=== PATIENT | female | born 1985 | race Caucasian/White ===

== ENCOUNTER 2016-11-10 15:08 | Emergency (ER) | payer OTHER ==
[2016-11-10] MEDS ORDERED: DIPH,PERTUSS(ACELL),TET VAC/PF 0.5 ML DISP.SYRIN IM ONE (15:19)
[2016-11-10] MEDS ORDERED: Lidocaine 1% 5ml(IM or SUTURE)(PAIN CLINIC) IJ ONE (15:39)
--- NOTE | 2016-11-10 16:03 | ED Physician Documentation ---
General Adult - HISTORIAN Historian: patient - HPI Stated Complaint: R index finger laceration Chief Complaint: General Adult Onset: minutes Timing: still present Severity: mild Further Comments: yes (Pt is a 30 yo female with a R index finger laceration.) - ROS CONST: no problems EYES/ENT: none CVS/RESP: none GI/: none MS/SKIN/LYMPH: other (laceration R index finger) - PAST HX Past History: hypertension Allergies/Adverse Reactions: Allergies Allergy/AdvReac Type Severity Reaction Status Date / Time Sulfa (Sulfonamide Allergy Severe Blister Verified 11/10/16 15:23 Antibiotics) cephalexin Allergy Verified 11/10/16 15:23 Penicillins Allergy Verified 11/10/16 15:24 Home Medications: Ambulatory Orders Medication Instructions Recorded Citalopram Hydrobromide 2 11/10/16 [Citalopram HBr] Lisinopril [Prinivil] 20 mg PO QD 11/10/16 Methylprednisolone [Medrol] 4 mg PO 11/10/16 - SOCIAL HX Smoking History: non-smoker - FAMILY HX Family History: No - REVIEWED ASSESSMENTS Nursing Assessment Reviewed: Yes Vitals Reviewed: Yes Procedures Wound Location: upper extremity (R index finger) Wound Length: 2 cm Wound's Depth, Shape: superficial Wound Explored: clean Irrigated w/ Saline (ccs): 10 Betadine Prep?: No (Shur-cleans prep) Anesthesia: 1% Lidocaine Volume of Anesthetic: 4 cc Wound Debrided: minimal Wound Repaired With: sutures Suture Size/Type: 4:0, nylon Number of Sutures: 3 Layer Closure?: No Sterile Dressing Applied?: Yes Progress - Progress Progress: Tdap 0.5 ml IM d/c instructions: Apply topical antibiotic such as Neosporin, Bacitracin,or Triple Antibiotic to sutured area twice daily for 5 days. Follow up with primary provider for suture removal in 5 to 7 days. ED Results Lab/Radiology - Orders Orders: ED Orders Category Date Time Status Diph,Pertuss(Acell),Tet Vac/Pf [Adacel] Med 11/10/16 15:19 Discontinued 0.5 ml IM .ONCE ONE Lidocaine 1% 5ml(IM or SUTURE) [Xylocaine] Med 11/10/16 15:39 Discontinued 50 mg IJ NOW ONE General Adult Physical Exam - PHYSICAL EXAM GENERAL APPEARANCE: no distress NECK: normal inspection, supple RESPIRATORY: no resp distress CVS: reg rate & rhythm BACK: normal inspection SKIN: other (2 cm superficial laceration R index finger) EXTREMITIES: other (2 cm superficial laceration R index finger) NEURO: oriented X3, motor nml, sensation nml Discharge Clincal Impression: R index finger laceration Referrals: Primary Doctor,No [Primary Care Provider] - Home Medications: Ambulatory Orders Citalopram Hydrobromide [Citalopram HBr] 2 11/10/16 Lisinopril [Prinivil] 20 mg PO QD 11/10/16 Methylprednisolone [Medrol] 4 mg PO 11/10/16 Condition: Good Disposition: 01 HOME, SELF-CARE Decision to Admit: NO Decision Time: 16:03
[2016-11-10 16:42] VITALS: BP 126/94
== END 2016-11-10 16:12 | disposition home or self-care (01) ==
LOC: ED 15:08
DX: S61.210A Laceration without foreign body of right index finger without damage to nail, initial encounter (principal); X58.XXXA Exposure to other specified factors, initial encounter; Y93.9 Activity, unspecified; Y99.9 Unspecified external cause status
CPT/HCPCS: 12001; 90471; 90715; 99283